=== PATIENT | male | born 1935 | race Caucasian/White ===

== ENCOUNTER 2016-08-18 05:22 | Inpatient (IN) | payer MEDICARE ==
[~2016-08-18] VITALS: Ht 177.8 cm; Wt 89.1 kg
[~2016-08-18 05:22] MED LIST: ADV250 IH; ALBU8HFA4 IH; ALLO100T PO; ASPI-1093 PO; AUD NEB; CARV6 PO; CLOP75 PO; CYAN50008 PO; CeFAZolin 2 GM/DEXTROSE 50 ML IV ONE; FURO40 PO; IRON COMPLEX PO; NITR.4 SL; RANI-257 PO; RANO500T3 PO; SITA50 PO; SODIUM CHLORIDE 0.9% 1,000 ML IV ONE; SPIR1TAB4 PO
[2016-08-18] MEDS ORDERED: SODIUM CHLORIDE 0.9% 1,000 ML IV ONE ×2 (06:00→08:55)
[2016-08-18] MEDS ORDERED: BUPIVACAINE 0.25%/EPI 1:200,000/PF 10 ML VIAL ONE (06:03)
[2016-08-18] MEDS ORDERED: BUPIVACAINE HCL/PF 0.5% 30 ML VIAL ONE (06:04)
[2016-08-18] MEDS ORDERED: VANCOMYCIN HCL 1 GM/VIAL ONE (06:04)
[2016-08-18 06:17] LABS: GLUCOSE,POINT OF CARE 137 MG/DL (70-110)
[2016-08-18] MEDS ORDERED: NITROGLYCERIN 2% (1 GM=INCH) PACKET TP ONE (06:29)
[2016-08-18] MEDS ORDERED: DiphenhydrAMINE HCL 50 MG/ML VIAL IVP PRN (06:30)
[2016-08-18] MEDS ORDERED: CeFAZolin 2 GM/DEXTROSE 50 ML IV ONE (06:30)
[2016-08-18] MEDS ORDERED: ZOLPIDEM TARTRATE 10 MG TABLET PO PRN (06:30)
[2016-08-18] MEDS ORDERED: BENZOCAINE/MENTHOL LOZENGE [8 LOZENGES/PACKET] PO PRN (06:30)
[2016-08-18] MEDS ORDERED: MICROFIBRILLAR COLLAGEN 1 GM PACKAGE TP ONE (07:09)
[2016-08-18] MEDS ORDERED: CYCLOBENZAPRINE HCL 10 MG TABLET PO PRN (08:00)
[2016-08-18] MEDS ORDERED: MEPERIDINE-PF 25 MG/ML SYRINGE IVP PRN ×2 (08:00)
[2016-08-18] MEDS ORDERED: HYDROmorphone 2 MG/ML SYRINGE IVP PRN (08:00)
[2016-08-18] MEDS ORDERED: FentaNYL CITRATE-PF 100 MCG/2 ML VIAL IVP PRN ×2 (08:00)
[2016-08-18] MEDS ORDERED: OXYGEN THERAPY IH SCH ×2 (08:00)
[2016-08-18] MEDS: BUPIVACAINE LIPOSOME/PF 1.3%-13.3MG/ML SUSPENSION 20 ML VIAL INJ ONE ×2 (08:39→08:49)
[2016-08-18] MEDS ORDERED: HYDROmorphone 2 MG/ML SYRINGE ONE (08:52)
[2016-08-18] MEDS: HYDROmorphone 2 MG/ML SYRINGE IVP PRN ×8 (08:53→23:18)
[2016-08-18] MEDS: DOCUSATE SODIUM 100 MG CAPSULE PO SCH ×2 (10:12→21:26)
[2016-08-18] MEDS ORDERED: ALBUTEROL SULFATE 2.5 MG/0.5 ML NEB SOLUTION NEB PRN (11:45)
[2016-08-18] MEDS: CARVEDILOL 6.25 MG TABLET PO SCH ×2 (11:47→21:26)
[2016-08-18] MEDS ORDERED: MIDAZOLAM HCL 2 MG/2 ML VIAL IVP ONE (12:00)
[2016-08-18] MEDS ORDERED: ALBUTEROL SULFATE HFA 90 MCG/PUFF 8 GM INHALER IH ONE (12:00)
[2016-08-18] MEDS ORDERED: GLYCOPYRROLATE 0.2 MG/ML VIAL IM ONE (12:00)
[2016-08-18] MEDS ORDERED: ONDANSETRON HCL 4 MG/2 ML VIAL IVP ONE (12:00)
[2016-08-18] MEDS ORDERED: DEXAMETHASONE SOD PHOS 4 MG/ML VIAL IVP ONE (12:00)
[2016-08-18] MEDS ORDERED: ESMOLOL HCL 10 MG/ML 10 ML VIAL IVP ONE (12:00)
[2016-08-18] MEDS ORDERED: FentaNYL CITRATE-PF 100 MCG/2 ML VIAL IVP ONE (12:00)
[2016-08-18] MEDS ORDERED: PROPOFOL 1% 20 ML VIAL IVP ONE (12:00)
[2016-08-18] MEDS ORDERED: LIDOCAINE HCL/PF 2% 5 ML VIAL INJ ONE (12:00)
[2016-08-18] MEDS ORDERED: ROCURONIUM BROMIDE 10 MG/ML 5 ML VIAL IVP ONE (12:00)
[2016-08-18] MEDS: BISACODYL 5 MG EC TABLET PO SCH (16:00)
[2016-08-18] MEDS: ACETAMINOPHEN 1000 MG/ISO-OSM 100 ML IV SCH ×2 (16:24→22:57)
[2016-08-18] MEDS: NITROGLYCERIN 2% (1 GM=INCH) PACKET TP SCH ×2 (16:28→21:27)
[2016-08-18 16:35] LABS: CREATINE KINASE, TOTAL 105 U/L (39-308)
[2016-08-18 17:45] LABS: BASOPHILS % (AUTO) 0.9 % (0.0-2.0); EOSINOPHILS % (AUTO) 1.3 % (1.0-6.0); HEMATOCRIT 42.5 % (41-53); HEMOGLOBIN 13.8 g/dL (13.5-17.5); LYMPHOCYTES % (AUTO) 12.3 % (22.0-44.0); MEAN CORPUSCULAR HEMOGLOBIN 29.3 pg (26.0-34.0); MEAN CORPUSCULAR HGB CONC 32.5 G/dL (31.0-37.0); MEAN CORPUSCULAR VOLUME 90 fL (80-100); MONOCYTES # (AUTO) 0.5 K/uL (0.1-1.0); MONOCYTES % (AUTO) 5.9 % (2.0-9.0); NEUTROPHILS # (AUTO) 6.6 K/uL (1.8-7.7); NEUTROPHILS % (AUTO) 79.6 % (40.0-70.0); PLATELET COUNT (AUTO) 253 K/uL (150-450); RED BLOOD CELL COUNT(AUTO) 4.72 MIL/uL (4.50-5.90); RED CELL DISTRIBUTION WIDTH 15.5 % (11.5-14.5); WHITE BLOOD COUNT (AUTO) 8.3 K/uL (4.5-11.0)
[2016-08-18 18:00] VITALS: BP 170/81
[2016-08-18 18:01] LABS: ALBUMIN 3.6 g/dL (3.4-5.0); CALCIUM, TOTAL 8.3 mg/dL (8.8-10.5); CREATININE 2.07 mg/dL (0.60-1.30); MAGNESIUM 1.7 mg/dL (1.80-2.40); POTASSIUM 4.2 mmol/L (3.5-5.1); TOTAL PROTEIN, SERUM 6.7 g/dL (6.4-8.2)
[2016-08-18 20:00] VITALS: BP 138/71
[2016-08-18] MEDS ORDERED: MAGNESIUM OXIDE 400 MG TABLET PO ONE (20:15)
[2016-08-18] MEDS ORDERED: CYAN500 PO (20:17)
[2016-08-18] MEDS ORDERED: FERS325 PO (20:17)
[2016-08-18] MEDS: SODIUM CHLORIDE 0.9% 1,000 ML IV SCH (21:26)
[2016-08-18 23:20] VITALS: BP 146/65
[2016-08-18 23:37] LABS: CREATINE KINASE MB 1.4 ng/mL (0-5); CREATINE KINASE, TOTAL 118 U/L (39-308)
[2016-08-18 23:40] VITALS: BP 124/64
[2016-08-19] VITALS (8 sets, daily range): BP systolic 122–154; BP diastolic 58–81
[2016-08-19 05:26] LABS: BASOPHILS # (AUTO) 0.02 K/uL (0.00-0.20); BASOPHILS % (AUTO) 0.4 % (0.0-2.0); EOSINOPHILS # (AUTO) 0.16 K/uL (0.00-0.70); EOSINOPHILS % (AUTO) 2.56 % (1.0-6.0); HEMATOCRIT 40.1 % (41-53); HEMOGLOBIN 13.3 g/dL (13.5-17.5); LYMPHOCYTES # (AUTO) 0.8 K/uL (1.0-4.8); LYMPHOCYTES % (AUTO) 12.4 % (22.0-44.0); MEAN CORPUSCULAR HEMOGLOBIN 29.7 pg (26.0-34.0); MEAN CORPUSCULAR HGB CONC 33.1 G/dL (31.0-37.0); MEAN CORPUSCULAR VOLUME 90 fL (80-100); MONOCYTES # (AUTO) 0.4 K/uL (0.1-1.0); MONOCYTES % (AUTO) 6.8 % (2.0-9.0); NEUTROPHILS % (AUTO) 77.9 % (40.0-70.0); PLATELET COUNT (AUTO) 210 K/uL (150-450); RED BLOOD CELL COUNT(AUTO) 4.46 MIL/uL (4.50-5.90); RED CELL DISTRIBUTION WIDTH 15.5 % (11.5-14.5); WHITE BLOOD COUNT (AUTO) 6.4 K/uL (4.5-11.0)
[2016-08-19 05:56] LABS: ALBUMIN 3.1 g/dL (3.4-5.0); BILIRUBIN,TOTAL 1.1 mg/dL (0.1-1.0); CALCIUM, TOTAL 7.8 mg/dL (8.8-10.5); CREATININE 1.85 mg/dL (0.60-1.30); MAGNESIUM 1.6 mg/dL (1.80-2.40); POTASSIUM 3.9 mmol/L (3.5-5.1); TOTAL PROTEIN, SERUM 6.3 g/dL (6.4-8.2)
[2016-08-19] MEDS: ACETAMINOPHEN 1000 MG/ISO-OSM 100 ML IV SCH ×3 (07:30→23:53)
[2016-08-19] MEDS ORDERED: MAGNESIUM OXIDE 400 MG TABLET PO ONE (07:45)
[2016-08-19] MEDS: BISACODYL 5 MG EC TABLET PO SCH (08:21)
[2016-08-19] MEDS: CARVEDILOL 6.25 MG TABLET PO SCH ×2 (08:22→21:44)
[2016-08-19] MEDS: DOCUSATE SODIUM 100 MG CAPSULE PO SCH ×2 (08:22→21:00)
[2016-08-19] MEDS: SitaGLIPtin PHOSPHATE 50 MG TABLET PO SCH (08:22)
[2016-08-19] MEDS: ASPIRIN 81 MG CHEWABLE TABLET PO SCH (08:22)
[2016-08-19] MEDS: CLOPIDOGREL BISULFATE 75 MG TABLET PO SCH (08:22)
[2016-08-19] MEDS: ALLOPURINOL 100 MG TABLET PO SCH (08:22)
[2016-08-19] MEDS: SODIUM CHLORIDE 0.9% 1,000 ML IV SCH (08:23)
[2016-08-19] MEDS: NITROGLYCERIN 2% (1 GM=INCH) PACKET TP SCH ×3 (08:23→21:44)
[2016-08-19] MEDS ORDERED: FUROSEMIDE 40 MG TABLET PO SCH (09:00)
[2016-08-19] MEDS: HYDROmorphone 2 MG/ML SYRINGE IVP PRN ×4 (09:42→21:46)
[2016-08-19] MEDS ORDERED: SODIUM CHLORIDE 0.9% 500 ML IV ONE (16:25)
[2016-08-20] VITALS (7 sets, daily range): BP systolic 130–160; BP diastolic 65–83
[2016-08-20] MEDS: HYDROmorphone 2 MG/ML SYRINGE IVP PRN ×5 (04:26→23:21)
[2016-08-20] MEDS: ACETAMINOPHEN 1000 MG/ISO-OSM 100 ML IV SCH (07:18)
[2016-08-20 08:35] LABS: BASOPHILS % (AUTO) 0.4 % (0.0-2.0); EOSINOPHILS % (AUTO) 2.6 % (1.0-6.0); HEMATOCRIT 42.2 % (41-53); HEMOGLOBIN 13.6 g/dL (13.5-17.5); LYMPHOCYTES # (AUTO) 0.9 K/uL (1.0-4.8); LYMPHOCYTES % (AUTO) 13.2 % (22.0-44.0); MEAN CORPUSCULAR HEMOGLOBIN 29.2 pg (26.0-34.0); MEAN CORPUSCULAR HGB CONC 32.3 G/dL (31.0-37.0); MEAN CORPUSCULAR VOLUME 91 fL (80-100); MONOCYTES # (AUTO) 0.6 K/uL (0.1-1.0); MONOCYTES % (AUTO) 7.9 % (2.0-9.0); NEUTROPHILS # (AUTO) 5.3 K/uL (1.8-7.7); NEUTROPHILS % (AUTO) 75.9 % (40.0-70.0); PLATELET COUNT (AUTO) 222 K/uL (150-450); RED BLOOD CELL COUNT(AUTO) 4.66 MIL/uL (4.50-5.90); RED CELL DISTRIBUTION WIDTH 15.9 % (11.5-14.5)
[2016-08-20] MEDS: DOCUSATE SODIUM 100 MG CAPSULE PO SCH ×2 (09:00→21:34)
[2016-08-20] MEDS: BISACODYL 5 MG EC TABLET PO SCH (09:09)
[2016-08-20] MEDS: CLOPIDOGREL BISULFATE 75 MG TABLET PO SCH (09:09)
[2016-08-20] MEDS: ALLOPURINOL 100 MG TABLET PO SCH (09:09)
[2016-08-20] MEDS: SitaGLIPtin PHOSPHATE 50 MG TABLET PO SCH (09:09)
[2016-08-20] MEDS: CARVEDILOL 6.25 MG TABLET PO SCH ×2 (09:10→21:34)
[2016-08-20] MEDS: ASPIRIN 81 MG CHEWABLE TABLET PO SCH (09:10)
[2016-08-20] MEDS: NITROGLYCERIN 2% (1 GM=INCH) PACKET TP SCH ×3 (09:10→21:34)
[2016-08-20 10:18] LABS: ALBUMIN 3.2 g/dL (3.4-5.0); BILIRUBIN,TOTAL 1.2 mg/dL (0.1-1.0); CALCIUM, TOTAL 8.6 mg/dL (8.8-10.5); CREATININE 1.43 mg/dL (0.60-1.30); MAGNESIUM 1.9 mg/dL (1.80-2.40); POTASSIUM 4.1 mmol/L (3.5-5.1); TOTAL PROTEIN, SERUM 6.6 g/dL (6.4-8.2)
[2016-08-20] MEDS ORDERED: OxyCODONE HCL/ACETAMINOPHEN 10-325 MG TABLET PO PRN (11:45)
[2016-08-20] MEDS ORDERED: PHENAZOPYRIDINE HCL 100 MG TABLET PO SCH (12:30)
[2016-08-20] MEDS: HYDROCODONE/ACETAMINOPHEN 5-325 MG TABLET PO PRN ×2 (13:20→17:35)
[2016-08-20] MEDS: CYCLOBENZAPRINE HCL 10 MG TABLET PO SCH ×2 (15:13→21:34)
[2016-08-20] MEDS ORDERED: CYCLOBENZAPRINE HCL 10 MG TABLET PO PRN (16:00)
[2016-08-20] MEDS: PHENAZOPYRIDINE HCL 100 MG TABLET PO SCH (21:35)
[2016-08-21 00:07] VITALS: BP 130/74
[2016-08-21] MEDS: HYDROmorphone 2 MG/ML SYRINGE IVP PRN (02:45)
[2016-08-21 03:18] VITALS: BP 140/73
[2016-08-21 07:10] LABS: BASOPHILS % (AUTO) 0.2 % (0.0-2.0); HEMATOCRIT 41.9 % (41-53); HEMOGLOBIN 13.6 g/dL (13.5-17.5); LYMPHOCYTES # (AUTO) 0.8 K/uL (1.0-4.8); MEAN CORPUSCULAR HEMOGLOBIN 29.3 pg (26.0-34.0); MEAN CORPUSCULAR HGB CONC 32.4 G/dL (31.0-37.0); MEAN CORPUSCULAR VOLUME 90 fL (80-100); MONOCYTES # (AUTO) 0.6 K/uL (0.1-1.0); MONOCYTES % (AUTO) 8.2 % (2.0-9.0); NEUTROPHILS # (AUTO) 6.2 K/uL (1.8-7.7); NEUTROPHILS % (AUTO) 79.6 % (40.0-70.0); PLATELET COUNT (AUTO) 223 K/uL (150-450); RED BLOOD CELL COUNT(AUTO) 4.63 MIL/uL (4.50-5.90); RED CELL DISTRIBUTION WIDTH 15.8 % (11.5-14.5); WHITE BLOOD COUNT (AUTO) 7.8 K/uL (4.5-11.0)
[2016-08-21 07:19] LABS: ALBUMIN 3.1 g/dL (3.4-5.0); CALCIUM, TOTAL 8.7 mg/dL (8.8-10.5); CREATININE 1.46 mg/dL (0.60-1.30); MAGNESIUM 1.6 mg/dL (1.80-2.40); POTASSIUM 3.6 mmol/L (3.5-5.1); TOTAL PROTEIN, SERUM 6.7 g/dL (6.4-8.2)
[2016-08-21] MEDS: HYDROCODONE/ACETAMINOPHEN 5-325 MG TABLET PO PRN (07:46)
[2016-08-21 07:50] VITALS: BP 152/89
[2016-08-21] MEDS ORDERED: HYDR2TAB35 PO (08:52)
[2016-08-21] MEDS ORDERED: OXYC10TA93 PO (08:54)
[2016-08-21] MEDS: ASPIRIN 81 MG CHEWABLE TABLET PO SCH (09:30)
[2016-08-21] MEDS: PHENAZOPYRIDINE HCL 100 MG TABLET PO SCH (09:30)
[2016-08-21] MEDS: SitaGLIPtin PHOSPHATE 50 MG TABLET PO SCH (09:30)
[2016-08-21] MEDS: CARVEDILOL 6.25 MG TABLET PO SCH (09:31)
[2016-08-21] MEDS: BISACODYL 5 MG EC TABLET PO SCH (09:31)
[2016-08-21] MEDS: ALLOPURINOL 100 MG TABLET PO SCH (09:31)
[2016-08-21] MEDS: CLOPIDOGREL BISULFATE 75 MG TABLET PO SCH (09:31)
[2016-08-21] MEDS: CYCLOBENZAPRINE HCL 10 MG TABLET PO SCH (09:31)
[2016-08-21] MEDS: DOCUSATE SODIUM 100 MG CAPSULE PO SCH (10:34)
[2016-08-21] MEDS: NITROGLYCERIN 2% (1 GM=INCH) PACKET TP SCH (10:34)
[2016-08-21] MEDS ORDERED: MAGNESIUM OXIDE 400 MG TABLET PO SCH (11:00)
== END 2016-08-21 11:20 | disposition home or self-care (01) | DRG 516 ==
LOC: 4E 05:22 → OBSVTOIN 05:22 → ICU 08:44 → 5S 08-19 13:00 → 4E 08-20 11:35
PROVIDERS: ADMIT Orthopaedic Surgery Orthopaedic Surgery of the Spine; ATTEND Orthopaedic Surgery Orthopaedic Surgery of the Spine
PROC: 01NB0ZZ Release Lumbar Nerve, Open Approach (ICD-10-PCS; principal; 2016-08-18 06:30)
DX: M48.06 Spinal stenosis, lumbar region (principal); I13.0 Hypertensive heart and chronic kidney disease with heart failure and stage 1 through stage 4 chronic kidney disease, or unspecified chronic kidney disease; I50.42 Chronic combined systolic (congestive) and diastolic (congestive) heart failure; I25.10 Atherosclerotic heart disease of native coronary artery without angina pectoris; N18.3 Chronic kidney disease, stage 3 (moderate); M19.90 Unspecified osteoarthritis, unspecified site; E11.22 Type 2 diabetes mellitus with diabetic chronic kidney disease; I25.2 Old myocardial infarction; I45.19 Other right bundle-branch block; I25.9 Chronic ischemic heart disease, unspecified; M10.9 Gout, unspecified; G47.33 Obstructive sleep apnea (adult) (pediatric); J45.909 Unspecified asthma, uncomplicated; G83.10 Monoplegia of lower limb affecting unspecified side; E83.42 Hypomagnesemia; Z95.5 Presence of coronary angioplasty implant and graft; Z79.82 Long term (current) use of aspirin; Z79.02 Long term (current) use of antithrombotics/antiplatelets; Z88.8 Allergy status to other drugs, medicaments and biological substances; Z79.899 Other long term (current) drug therapy; Z79.84 Long term (current) use of oral hypoglycemic drugs; Z79.51 Long term (current) use of inhaled steroids; Z98.890 Other specified postprocedural states; Z91.018 Allergy to other foods; Z87.891 Personal history of nicotine dependence; Z86.010 Personal history of colon polyps; Z87.01 Personal history of pneumonia (recurrent); Z85.51 Personal history of malignant neoplasm of bladder; Z80.3 Family history of malignant neoplasm of breast; Z82.49 Family history of ischemic heart disease and other diseases of the circulatory system
CPT/HCPCS: 82962; 83735; 87081; 93005; 93306; 97116; 97163; 97165; 97530; 97535; C9290; J0131; J0690; J1100; J1170; J2250; J2405; J2704; J3010; J3370; J3490; J3535; J7030; J7040